=== PATIENT | female | born 1985 | race Two or more races ===

== ENCOUNTER 2017-11-10 20:35 | Emergency (ER) | payer MEDICAID ==
[~2017-11-10] VITALS: Ht 154.9 cm; Wt 78.0 kg
[2017-11-10] MEDS ORDERED: SODIUM CHLORIDE 0.9% 1,000 ML IV ONE (23:55)
[2017-11-11] MEDS ORDERED: ONDANSETRON HCL 4MG/2ML INJ IV ONE
[2017-11-11 00:52] LABS: HEMATOCRIT. 32.1 % (36.0-48.0); HEMOGLOBIN. 11.2 g/dL (12.0-16.0); MEAN CORPUSCULAR HEMOGLOBIN 30.2 pg (28.0-32.0); MEAN PLATELET VOLUME 7.6 fl (7.4-10.4); PLATELET 264 x1000/uL (130-400); RED BLOOD CELL COUNT 3.69 mill/uL (4.2-5.4); RED CELL DISTRIBUTION WIDTH 12.9 % (11.6-14.6)
[2017-11-11 00:54] LABS: CHLORIDE 103 mEq/L (98-107)
[2017-11-11 00:58] LABS: CLARITY URINE TURBID (CLEAR); COLOR URINE DARK YELLOW (YELLOW); KETONES URINE TRACE (NEGATIVE); LEUKOCYTE ESTERASE URINE 2+ (NEGATIVE); NITRITE URINE NEGATIVE (NEGATIVE); OCCULT BLOOD URINE NEGATIVE (NEGATIVE); PH URINE 5.5 (4.5-8.0); PROTEIN URINE TRACE (NEGATIVE); SPECIFIC GRAVITY URINE 1.032 (1.005-1.030)
[2017-11-11] MEDS ORDERED: POTASSIUM CHLORIDE 20MEQ TABLET SR PO SCH (01:15)
[2017-11-11 01:17] LABS: B-HCG QUANTITATIVE 30894 mIU/mL (<3)
[2017-11-11 02:07] VITALS: BP 100/66
[2017-11-11 06:35] LABS: PLATELET ESTIMATE NORMAL
== END 2017-11-11 02:10 | disposition home or self-care (01) ==
LOC: ER 20:35
DX: O20.0 Threatened abortion (principal); O21.1 Hyperemesis gravidarum with metabolic disturbance; E87.6 Hypokalemia; N30.00 Acute cystitis without hematuria; R79.89 Other specified abnormal findings of blood chemistry; Z3A.11 11 weeks gestation of pregnancy
CPT/HCPCS: 36415; 76801; 80053; 81003; 83690; 84702; 85025; 86850; 86900; 86901; 96361; 96374; 99285; J2405; J7030